=== PATIENT | female | born 1985 ===

== ENCOUNTER 2017-01-12 01:52 | Observation (INO) | payer MEDICAID, OTHER ==
[2017-01-12] MEDS ORDERED: Sodium Chloride 0.9% 1,000 ML IV STA (02:10)
[2017-01-12] MEDS: Sodium Chloride 0.9% 1,000 ML IV STA ×2 (02:37→05:23)
[2017-01-12] MEDS ORDERED: Alum-Mag Hydrox-Simethicone Susp (30 mL) PO STA (02:41)
[2017-01-12 02:48] LABS: BASO # 0.1 K/uL (0.0-0.2); EOS # 0.3 K/uL (0.0-0.7); EOS % 4.4 % (0.0-4.0); HEMATOCRIT 36.3 % (34.0-47.0); LYMPH % 39.5 % (20.0-40.0); MEAN CELL VOLUME 70.2 fl (81.0-99.0); MEAN CORPUSCULAR HEMOGLOBIN 21.6 pg (27.0-31.0); MEAN CORPUSCULAR HGB CONC 30.8 g/dL (33.0-37.0); MEAN PLATELET VOLUME 8.6 fl (7.2-11.7); MONO # 0.5 K/uL (0.0-0.8); MONO % 7.1 % (0.0-10.0); NEUT # 3.7 K/uL (1.8-7.0); NRBC % 0.1 % (0.0-0.0); RED CELL DISTRIBUTION WIDTH 18.6 % (11.5-14.5); WHITE BLOOD COUNT 7.6 K/uL (4.8-10.8)
--- NOTE | 2017-01-12 02:48 | ED PDOC ---
HPI: Abdomen Time Seen by Provider: 01/12/17 01:54 Chief Complaint (Nursing): Abdominal Pain Chief Complaint (Provider): Epigastric abdominal pain History Per: Patient History/Exam Limitations: no limitations Onset/Duration Of Symptoms: Days Outside of [place] travel?: No Current Symptoms Are (Timing): Still Present Severity: Severe Pain Scale Rating Of: 10 Location Of Pain/Discomfort: Epigastric Quality Of Discomfort: Cramping, Burning Associated Symptoms: Nausea, Vomiting, Loss Of Appetite. denies: Fever, Chills , Back Pain, Chest Pain, Constipation, Urinary Symptoms Exacerbating Factors: None Alleviating Factors: None Additional Complaint(s): Pt states she had Pancreatitis a few months ago and GB removed in June. Pt diagnosed with H.Pylori by GI during endoscopy. Pt was given Rx but is picking them up friday (tomorrow). Past Medical History Reviewed: Historical Data, Nursing Documentation, Vital Signs Vital Signs: Last Vital Signs Temp 98.7 F 01/12/17 01:57 Pulse 72 01/12/17 01:57 Resp 18 01/12/17 01:57 BP 133/92 H 01/12/17 01:57 Pulse Ox 100 01/12/17 02:51 - Medical History PMH: Asthma (albuterol inh/neb) - Surgical History Surgical History: Appendectomy - Family History Family History: States: Unknown Family Hx - Living Arrangements Living Arrangements: With Family - Immunization History Hx Tetanus Toxoid Vaccination: Yes (2 yrs ago; 09/12/2012) Hx Influenza Vaccination: Yes Hx Pneumococcal Vaccination: No - Home Medications Home Medications: Ambulatory Orders Medication Instructions Recorded [id number] [ Rx] 1 tab PO DAILY #30 tab 11/26/12 Albuterol Sulfate [Proventil Hfa] 0.09 mg IH Q6 PRN 01/10/15 - Allergies Allergies/Adverse Reactions: Allergies Allergy/AdvReac Type Severity Reaction Status Date / Time hydromorphone HCl Allergy Severe SHORTNESS Verified 01/12/17 01:57 [From Dilaudid] OF BREATH Review of Systems ROS Statement: Except As Marked, All Systems Reviewed And Found Negative Constitutional: Negative for: Fever, Chills Gastrointestinal: Positive for: Nausea, Vomiting, Abdominal Pain Skin: Negative for: Rash Physical Exam - Reviewed Nursing Documentation Reviewed: Yes Vital Signs Reviewed: Yes - Physical Exam Appears: Positive for: Well, Non-toxic, No Acute Distress Head Exam: Positive for: ATRAUMATIC, NORMAL INSPECTION, NORMOCEPHALIC Skin: Positive for: Normal Color, Warm, DRY Eye Exam: Positive for: Normal appearance ENT: Positive for: Normal ENT Inspection Neck: Positive for: Normal, Painless ROM Cardiovascular/Chest: Positive for: Regular Rate, Rhythm Respiratory: Positive for: Normal Breath Sounds. Negative for: Accessory Muscle Use, Respiratory Distress Gastrointestinal/Abdominal: Positive for: Bowel Sounds, Soft, Tenderness ( Epigastric ). Negative for: Normal Exam Back: Positive for: Normal Inspection Extremity: Positive for: Normal ROM Neurologic/Psych: Positive for: Alert, Oriented - Laboratory Results Result Diagrams: 01/12/17 02:30 01/12/17 02:30 - ECG O2 Sat by Pulse Oximetry: 100 Medical Decision Making Medical Decision Makin - Pt states the pain was so bad she passed out in the restroom. Pt brought back to room. Head CT ordered. Pt complaints or pain 01/21. Pt has endoscopy/colonoscopy a week ago. Case discussed with Dr. Jones Disposition - Clinical Impression Clinical Impression: Abdominal pain in female - Patient ED Disposition Is Patient to be Admitted: Transfer of Care - Disposition Disposition: Transfer of Care Disposition Time: 05:19 Condition: GOOD Forms: [employer] (Maori)
[2017-01-12 03:13] LABS: BLOOD UREA NITROGEN 15 mg/dl (7-17); GFR AFRICAN-AMERICAN > 60; GLUCOSE,RANDOM 88 mg/dL (65-105)
[2017-01-12 03:14] LABS: SODIUM 140 mmol/l (132-148)
[2017-01-12 03:15] LABS: CALCIUM 9.3 mg/dL (8.4-10.2); CARBON DIOXIDE 24 mmol/L (22-30); CHLORIDE 107 mmol/L (98-107); TOTAL PROTEIN 8.2 G/DL (6.3-8.2)
[2017-01-12] MEDS ORDERED: Alum-Mag Hydrox-Simethicone Susp (30 mL) ONE (03:15)
[2017-01-12 03:16] LABS: ALKALINE PHOSPHATASE 103 U/L (38-126); ALT/SGPT 37 U/L (9-52); AST/SGOT 33 U/L (14-36); BILIRUBIN,TOTAL 0.4 mg/dl (0.2-1.3)
[2017-01-12 03:17] LABS: LIPASE 95 U/L (23-300)
--- NOTE | 2017-01-12 07:01 | ED PDOC ---
- Laboratory Results Result Diagrams: 01/12/17 02:30 01/12/17 02:30 - ECG O2 Sat by Pulse Oximetry: 96 (RA) Pulse Ox Interpretation: Normal Medical Decision Making Medical Decision Making: Time: 6:00 --Patient is signed out to me by Elba Sarmiento PA-C, pending CT Head. Time: 7:00 --Patient is signed out by me to Dr. Shayy Frias, pending CT Head. Scribe Attestation: Documented by Marry Tanner, acting as a scribe for Elle Jones MD Provider Scribe Attestation: All medical record entries made by the Scribe were at my direction and personally dictated by me. I have reviewed the chart and agree that the record accurately reflects my personal performance of the history, physical exam, medical decision making, and the department course for this patient. I have also personally directed, reviewed, and agree with the discharge instructions and disposition. Disposition - Clinical Impression Clinical Impression: Abdominal pain in female - POA Present On Arrival: None - Disposition Disposition: Transfer of Care Disposition Time: 07:00 Condition: STABLE Forms: [facility] (Kazakh) Patient Signed Over To: Shayy Frias Handoff Comments: Pending ct head
--- NOTE | 2017-01-12 07:17 | ED PDOC ---
- Laboratory Results Result Diagrams: 01/12/17 02:30 01/12/17 02:30 - ECG O2 Sat by Pulse Oximetry: 96 (RA) Medical Decision Making Medical Decision Making: Receiving sign out: Patient signed out to me by Dr. Jones at [address] studies. Scribe Attestation: Documented by Marisela Galicia acting as a scribe for Shayy Frias MD. Provider Attestation: All medical record entries made by the Scribe were at my direction and personally dictated by me. I have reviewed the chart and agree that the record accurately reflects my personal performance of the history, physical exam, medical decision making, and the department course for this patient. I have also personally directed, reviewed, and agree with the discharge instructions and disposition. Disposition - Clinical Impression Clinical Impression: Abdominal pain in female, Vasovagal syncope - POA Present On Arrival: None - Disposition Referrals: [facility] [Outside] Disposition: Routine/Home Disposition Time: 07:00 Condition: STABLE Prescriptions: Dicyclomine [Bentyl] 20 mg PO QID PRN #10 tab PRN Reason: Pain, Moderate (4-7) Instructions: Syncope (ED), Abdominal Pain (ED) Forms: [employer] (Thai) ED OBSERVATION Date of observation admission: 01/12/17 Time of observation admission: 07:00 - Observation admission statement Patient is being placed in observation because:: Patient with abdominal pain, head injury - Goals of Observation Goals of observation are:: Pending CT imaging studies - Progress Note Progress Note: 01/12/17 07:00 Patient signed out by Dr. Moncada pending imaging studies 01/12/17 07:34 CT Head Impression: No evidence of acute cerebral hemorrhage or edema. 01/12/17 09:00 Patient resting in room, no acute distress. 01/12/17 09:30 CT Abdomen Impression: No appreciable acute inflammatory process in abdomen or pelvis. No evidence of bowel obstruction. Status post cholecystectomy and appendectomy. No adnexal masses identified. Probable fatty infiltration of liver. No bile duct dilation seen. 01/12/17 09:41 Patient informed of results and informed he is stable for discharge home. Patient advised to follow up with PCP in 1-2 days and to return to ED if symptoms worsen or new symptoms arise.
--- NOTE | 2017-01-12 07:35 | CT ---
EXAM: CT Head Without Intravenous Contrast EXAM DATE/TIME: 01/12/2017 5:04 AM CLINICAL HISTORY: 31 years old, female; Signs and symptoms; Alteration of consciousness; Syncope and collapse TECHNIQUE: Axial computed tomography images of the head/brain without intravenous contrast. All CT scans at this facility use one or more dose reduction techniques, viz.: automated exposure control; ma/kV adjustment per patient size (including targeted exams where dose is matched to indication; i.e. head); or iterative reconstruction technique. Coronal and sagittal reformatted images were created and reviewed. COMPARISON: No relevant prior studies available. FINDINGS: There is no subdural or subarachnoid hemorrhage. There is no intraparenchymal hemorrhage. Normal lopez white differentiation is noted. No midline shift or mass effect is identified. Calvarium and visualized facial bones appear intact. There are mild mucosal thickening of ethmoid and maxillary sinuses. IMPRESSION: No evidence of acute cerebral hemorrhage or edema.
[2017-01-12] MEDS ORDERED: Sodium Chloride 0.9% 50 ML IV ONE (08:32)
[2017-01-12] MEDS ORDERED: Iohexol 300 100 ML IJ ONE (08:32)
--- NOTE | 2017-01-12 09:21 | CT ---
PROCEDURE: CT Abdomen and Pelvis with contrast HISTORY: abdominal pain COMPARISON: 10/03/2011 CT scan TECHNIQUE: Contrast dose: 90 milliliters omni 300 Radiation dose: Total exam DLP = 544 mGy-cm. This CT exam was performed using one or more of the following dose reduction techniques: Automated exposure control, adjustment of the mA and/or kV according to patient size, and/or use of iterative reconstruction technique. FINDINGS: LOWER THORAX: Unremarkable. LIVER: Liver is mildly fatty infiltrated, without evidence of focal mass or intrahepatic ductal dilatation. GALLBLADDER AND BILE DUCTS: Gallbladder is been removed since prior study. Common bile duct is normal in size for a post cholecystectomy patient of this age. PANCREAS: Pancreas is slightly heterogeneous in density without peripancreatic inflammatory change or enlargement. Pancreatic duct is not appear to be significantly dilated. SPLEEN: Unremarkable. ADRENALS: Unremarkable. No mass. KIDNEYS AND URETERS: Unremarkable. No hydronephrosis. No solid mass. VASCULATURE: Unremarkable. No aortic aneurysm. BOWEL: Unremarkable. No obstruction. No gross mural thickening. Terminal ileum is unremarkable. No small bowel dilatation or small bowel fold thickening is noted. Visualized stomach is decompressed but shows no evidence of wall thickening. Duodenum is unremarkable. APPENDIX: Appendix appears to been previously removed. No right lower quadrant inflammatory process is seen. PERITONEUM: No ascites is seen. No free intraperitoneal air is identified. LYMPH NODES: Unremarkable. No enlarged lymph nodes. BLADDER: Unremarkable. REPRODUCTIVE: Uterus is normal in size. No adnexal masses are seen. BONES: Bony structures are unremarkable. No fracture is seen. No lytic process is identified. OTHER FINDINGS: Presacral region is unremarkable. No ventral hernias are identified. IMPRESSION: No appreciable acute inflammatory process in the abdomen or pelvis. No evidence of bowel obstruction. Status post cholecystectomy and appendectomy. No adnexal masses identified. Probable fatty infiltration of the liver. No bile duct dilatation seen.
[2017-01-12 09:43] VITALS: BP 128/78; PULSE 78; RESP 19; TEMP 97.6; O2SAT 98
== END 2017-01-12 09:44 | disposition home or self-care (01) ==
LOC: H.ER 01:52 → H.EROBSV 07:00 → H.ER 09:44
PROVIDERS: ADMIT Emergency Medicine; ATTEND Emergency Medicine
DX: R10.13 Epigastric pain (principal); J45.909 Unspecified asthma, uncomplicated; R55 Syncope and collapse
CPT/HCPCS: 70450; 74177; 80053; 81025; 83690; 85025; 96361; 96374; 96375; 96376; 99282; G0378; J2270; J2405; J7040; Q9967